=== PATIENT | female | born 1970 | race Caucasian/White ===

== ENCOUNTER 2021-01-09 13:17 | Emergency (ER) | payer BC ==
--- NOTE | 2021-01-09 14:01 | EDM.PDOC ---
ED HPI GENERAL MEDICAL PROBLEM - General Chief Complaint: General Stated Complaint: RT SIDE SWELLING AFTER A CROWN WAS PUT IN Time Seen by Provider: 01/09/21 13:44 Source of Information: Reports: Patient History Limitations: Reports: No Limitations - History of Present Illness INITIAL COMMENTS - FREE TEXT/NARRATIVE: Nicole is a 50 yo female who presents to the ED with concerns of swelling to her right face. States she had a crown fixed this afternoon around 12:30 and they ended up having to use a lot of local anesthetic d/t being really tender. She states after they finished she started to notice quite a bit of swelling on the right side of her face. She went back in and the dentist thought possibly got a hematoma from the anesthetic. Recommended icing and ibuprofen. States they told her if she has any difficulty with breathing to come back. States on her way home she thought maybe it was difficult to swallow and thought she better get checked out. Denies any shortness of breath presently. States she is still numb from the medication. - Related Data Allergies Allergy/AdvReac Type Severity Reaction Status Date / Time Sulfa (Sulfonamide Allergy Rash Verified 01/09/21 13:22 Antibiotics) Home Meds: Home Meds Albuterol [Ventolin HFA] 2 inh INH ASDIRECTED PRN 01/09/21 [History] Budesonide [Pulmicort] 1 inh INH DAILY 01/09/21 [History] Past Medical History Respiratory History: Reports: Asthma [employer] History: Reports: Endometriosis Other [employer] History: endometrial laproscopy surgery - Past Surgical History HEENT Surgical History: Reports: Naso-Sinus Surgery, Other (See Below) Other HEENT Surgeries/Procedures: wisdom teeth removed. sinus surgery Social & Family History - Tobacco Use Tobacco Use Status *Q: Never Tobacco User - Caffeine Use Caffeine Use: Reports: Tea - Recreational Drug Use Recreational Drug Use: No ED ROS GENERAL - Review of Systems Review Of Systems: Comprehensive ROS is negative, except as noted in HPI. ED EXAM, GENERAL - Physical Exam Exam: See Below Exam Limited By: No Limitations General Appearance: Alert, WD/WN, No Apparent Distress Nose: Normal Inspection, Normal Mucosa, No Blood Throat/Mouth: Normal Inspection, Normal Lips, Normal Oropharynx, Normal Voice, No Airway Compromise. No: Perioral Cyanosis Head: Facial Swelling (mild right sided facial swelling). No: Sinus Tenderness Neck: Normal Inspection, Supple Respiratory/Chest: No Respiratory Distress, Lungs Clear, Normal Breath Sounds, No Accessory Muscle Use Cardiovascular: Regular Rate, Rhythm, No Murmur Neurological: Alert, Oriented Psychiatric: Normal Affect, Normal Mood, Anxious (mildly) Course - Vital Signs Last Recorded V/S: Last Vital Signs Temp 97.5 F 01/09/21 13:28 Pulse 82 01/09/21 13:28 Resp 16 01/09/21 13:28 BP 144/86 H 01/09/21 13:28 Pulse Ox 100 01/09/21 13:28 Departure - Departure Time of Disposition: 13:59 Disposition: Home, Self-Care 01 Clinical Impression: History of local anesthesia, Right facial swelling - Discharge Information Referrals: Shila Lemons [employer] [Primary Care Provider] - Forms: ED Department Discharge Additional Instructions: 1) Overall, exam looked unremarkable today. I do not see any concerning hematomas or swelling. Oral pharynx appeared intact. Lung were clear. Recommend continuing with icing 20 minutes at a time, 4-5 times a day for next two days. May continue to use Tylenol and alternate with ibuprofen. Encourage if swelling increases or any further complications to return for reevaluation. Sepsis Event Note (ED) - Evaluation Sepsis Screening Result: No Definite Risk - Focused Exam Vital Signs: Vital Signs Temp Pulse Resp BP Pulse Ox 01/09/21 13:28 97.5 F 82 16 144/86 H 100 - Problem List & Annotations (1) History of local anesthesia SNOMED Code(s): 300328117 Code(s): Z92.29 - PERSONAL HISTORY OF OTHER DRUG THERAPY Status: Acute (2) Right facial swelling SNOMED Code(s): 834869730 Code(s): R22.0 - LOCALIZED SWELLING, MASS AND LUMP, HEAD Status: Acute - Assessment/Plan Plan: See additional instructions for plan.
== END 2021-01-09 14:06 | disposition home or self-care (01) ==
LOC: SUPCPDRO 13:17 → CC.ED 13:17
DX: R22.0 Localized swelling, mass and lump, head (principal); J45.909 Unspecified asthma, uncomplicated; Z88.2 Allergy status to sulfonamides
CPT/HCPCS: 99283

== ENCOUNTER → 2021-04-12 | Day surgery (SDC) | payer BC ==
[~2021-04-12] MED LIST: Lactated Ringers 1,000 ML IV SCH; Lidocaine 2% 5 ML SDV ONE; Midazolam 1 MG/ML 2 ML SDV ONE; Propofol 200 MG/20 ML SDV ONE; ePHEDrine 50 MG/ML SDV ONE; fentaNYL 100 MCG/2 ML SDV ONE
--- NOTE | 2021-04-12 12:14 | OR ---
DATE OF OPERATION: 04/12/2021 PREOPERATIVE DIAGNOSIS: 1. WEIGHT LOSS. 2. CHRONIC CONSTIPATION. 3. ABDOMINAL BLOATING. POSTOPERATIVE DIAGNOSIS: 1. WEIGHT LOSS. 2. CHRONIC CONSTIPATION. 3. ABDOMINAL BLOATING. SURGEON: Ben Jarrett MD PROCEDURE: 1. DIAGNOSTIC ESOPHAGOGASTRODUODENOSCOPY WITH BIOPSIES X2, ITZEL, POLYP REMOVAL X2. 2. FULL-LENGTH DIAGNOSTIC COLONOSCOPY WITH RANDOM BIOPSIES X5, LIPOMA REMOVAL X1. ANESTHESIA: MAC. COMPLICATIONS: None. SPECIMEN: 1. Antral biopsy x2. 2. Antral ITZEL. 3. Adenomatous polyps of fundus x2. 4. Random colon biopsies from cecum to rectum. 5. Lipoma, rectal vault. FINDINGS: 1. Full-length diagnostic EGD. 2. Antral gastritis without ulceration or erosion. 3. Hiatal hernia. 4. Adenomatous polyps x2, fundus. 5. Full-length diagnostic colonoscopy. 6. Diffuse melanosis coli. 7. Lipoma, rectal vault. RECOMMENDATIONS: The patient will be treated for her gastritis and further workup pending pathology reports. INDICATIONS: Mrs. Davis has been having a weight loss of about 30 pounds over the last 3 to 4 months. This is associated with some upper abdominal bloating and pain, chronic constipation. No diarrhea. She has not had any known melena or hematochezia. We elected to proceed with both upper and lower endoscopies. DESCRIPTION OF PROCEDURE: The patient was placed in the left lateral decubitus position with head of the bed elevated. A lubricated Olympus gastroscope was inserted over bite block and advanced to cricopharyngeus area and easily intubated in the esophagus with swallow. The esophageal line appeared benign its entire course. The Z-line was crisp and sharp around 37 cm. There appears to be a small hiatal hernia present with no visualized spontaneous reflux. There did not appear to be any gross distal esophagitis, stricturing, ulceration, or Hobbs's changes. The scope was advanced into the stomach, through the pylorus, and into the second portion of the duodenum. The second portion of the duodenum appeared benign. No gross abnormality seen in the duodenal bulb. The scope was brought back into the stomach and retroflexed. The upper fundus and cardia appeared grossly benign. Small hernia visualized, but minimal from below. There were no lesions in the upper fundus or cardia. Upon straightening, there were two small adenomatous polyps in the midportion of the fundus and those were removed with forceps. Upon further view, the rest of the fundus was benign, but the antrum had active gastritis, mild in severity. We did do two biopsies of it and took a CLOtest. There were no other polyps, masses, ulceration, or lesions. Air was then suctioned from the stomach and the scope removed without complication. A lubricated Olympus colonoscope was then inserted and with ease, advanced to the cecum. We were able to directly visualize the ileocecal valve and appendiceal orifice. The bowel prep was excellent. We did attempt multiple times to get into her terminal ileum. She had a very tight ileocecal valve. It was hard to get in there. We elected to quit attempting that. Upon withdrawal, the patient does have diffuse melanosis coli throughout the length of her colon. We did do random biopsies of this from the cecum to the rectum, but no other polyps, masses, ulcerations, or bleeding sites were seen. No obvious vascular abnormalities or other gross signs of colitis. There were certainly no obstructing masses or etiology of the patient's constipation. In the rectal vault, the patient had one small nodular type polyp, appeared to be a lipoma. We could not get a snare around it as it was quite flat and two biopsies did confirm lipomatosis mucosa underneath the biopsy sites. Retroflexion of the scope showed no perianal lesions. Air was then suctioned and the scope was removed without complication. TEJAL/HOOD /[id number]
== END ==
LOC: CC.SDS 08:55
PROVIDERS: ATTEND Family Medicine
DX: K63.89 Other specified diseases of intestine (principal); K31.89 Other diseases of stomach and duodenum; K62.1 Rectal polyp; K62.89 Other specified diseases of anus and rectum; K59.09 Other constipation; R63.0 Anorexia; K44.9 Diaphragmatic hernia without obstruction or gangrene; K29.60 Other gastritis without bleeding; J45.21 Mild intermittent asthma with (acute) exacerbation; Z88.2 Allergy status to sulfonamides; Z79.899 Other long term (current) drug therapy
CPT/HCPCS: 36415; 43239; 45380; 84703; 87081; J2250; J2704; J3010; J7120; 00813

== ENCOUNTER → 2022-07-17 | Day surgery (SDC) | payer BC ==
[~2022-07-17] MED LIST changes: -Lactated Ringers 1,000 ML IV SCH; +Lidocaine 1% w/EPINEPHrine 100 ML, Sodium Chloride 0.9% 900 ML, Sodium Bicarbonate 10 MEQ INJECT ONE; -Lidocaine 2% 5 ML SDV ONE; -Midazolam 1 MG/ML 2 ML SDV ONE; -Propofol 200 MG/20 ML SDV ONE; -ePHEDrine 50 MG/ML SDV ONE; -fentaNYL 100 MCG/2 ML SDV ONE
[2022-07-17] MEDS: Lidocaine 1% 5 ML VIAL INJECT ONE ×2 (16:10→16:45)
[2022-07-17] MEDS: Lidocaine 1% 30 ML SDV INJECT ONE ×2 (16:10→16:45)
== END ==
LOC: CC.SDS 14:55
PROVIDERS: ATTEND Family Medicine
DX: I83.813 Varicose veins of bilateral lower extremities with pain (principal); I87.2 Venous insufficiency (chronic) (peripheral); J45.21 Mild intermittent asthma with (acute) exacerbation; Z88.2 Allergy status to sulfonamides; Z79.899 Other long term (current) drug therapy
CPT/HCPCS: A4216; J3490; J7030